=== PATIENT | female | born 1995 | race Caucasian/White ===

== ENCOUNTER 2021-06-05 13:47 | Emergency (ER) | payer MEDICAID, OTHER ==
[~2021-06-05] VITALS: Ht 177.8 cm; Wt 88.9 kg
[2021-06-05 13:55] VITALS: BP 115/85
== END 2021-06-05 14:17 | disposition left against medical advice (07) ==
LOC: ED 14:10
DX: M79.641 Pain in right hand (principal); R00.0 Tachycardia, unspecified; Z53.21 Procedure and treatment not carried out due to patient leaving prior to being seen by health care provider
CPT/HCPCS: 93005